=== PATIENT | female | born 1995 | race Hispanic/Latino ===

== ENCOUNTER 2020-02-26 18:18 | Emergency (ER) | payer SELFPAY ==
[2020-02-26] MEDS ORDERED: Sodium Chloride 0.9% 100 ML ONE ×2 (18:59→19:44)
[2020-02-26] MEDS ORDERED: cefTRIAXone\\ROCEPHIN 2 GM VIAL ONE (18:59)
[2020-02-26] MEDS ORDERED: Sodium Chloride 0.9% 2,000 ML ONE (18:59)
[2020-02-26 19:02] LABS: Bilirubin Negative (Negative); Blood, Urine Moderate (Negative); Glucose, Urine (Dipstick) Negative (Negative); Ketone, Urine Negative (Negative); Leukocyte Moderate (Negative); Nitrite Positive (Negative); Protein, Urine (Dipstick) > or equal to 300 mg/dL (Neg-Trace); Urobilinogen 0.2 mg/dL (Less than 2); pH, Urine 5.5 (5.0-9.0)
[2020-02-26 19:11] LABS: #Lymphocytes 0.7 thou/uL (1.20-3.40); #Monocytes 0.2 thou/uL (0.11-0.59); #Neutrophils 14.6 thou/uL (1.40-6.50); %Basophils 0.2 % (0.0-1.0); %Eosinophils 0.1 % (0.0-10.0); %Lymphocytes 4.7 % (21.0-51.0); %Monocytes 1.3 % (0.0-10.0); %Neutrophils 93.7 % (42.0-75.0); Hemoglobin 12.7 g/dL (12.0-16.0); Mean Corpuscular HGB CONC 32.3 g/dL (32.0-36.0); Mean Corpuscular Volume 92.9 fL (78.0-98.0); Mean Platelet Volume 11.6 fL (7.4-10.4); Platelet Count 164 thou/uL (130-400); RBC Distribution Width 11.6 % (11.5-14.5); Red Blood Cell (RBC) Count 4.24 mill/uL (4.20-5.40); White Blood Cell (WBC) Count 15.6 thou/uL (4.8-10.8)
[2020-02-26 19:16] LABS: Clarity Hazy (Clear)
[2020-02-26 19:21] LABS: Pregnancy Test - Urine (BHCG) Negative (Negative); Pregu Control Background? CLEAR/WHITE (CLR/WHITE); Pregu Control Bar Appear? YES (CONTROL BAR)
[2020-02-26 19:24] LABS: Bacteria/HPF 2+ HPF (None Seen); Squamous Epithelial 0-3 HPF (0-3); WBC/HPF Greater Than 50 HPF (0-3)
[2020-02-26 19:24] LABS: ALT (SGPT) 12 U/L (8-55); AST (SGOT) 19 U/L (5-34); Albumin 4.4 g/dL (3.5-5.0); Alkaline Phosphatase 86 U/L (40-110); Anion Gap 17 mmol/L (10-20); BUN (Urea Nitrogen) 25 mg/dL (7.0-18.7); Bilirubin, Total 0.8 mg/dL (0.2-1.2); Calc. Creatinine Clearance 0 mL/min (70-130); Calcium 9.2 mg/dL (7.8-10.44); Carbon Dioxide 18 mmol/L (22-29); Chloride 107 mmol/L (98-107); Estimated GFR-MDRD 29; Globulin 2.9 g/dL (2.4-3.5); Glucose 100 mg/dL (70-105); Potassium 3.6 mmol/L (3.5-5.1); Protein, Total 7.3 g/dL (6.0-8.3); Sodium 138 mmol/L (136-145)
--- NOTE | 2020-02-26 20:04 | CT ---
CT of abdomen and pelvis: 02/26/2020 COMPARISON: None HISTORY: Low back pain, cloudy urine, chills TECHNIQUE: Axial CT imaging at 5 mm intervals from lung bases through pubic symphysis without contras t. Coronal reformatted imaging obtained. FINDINGS: Lack of contrast media limits assessment of the viscera, bowel, vascular structures, and fo r lymphadenopathy. Imaged lung bases are grossly unremarkable. Limited assessment of the liver, gallbladder, and spleen unremarkable. Pancreas and adrenal glands ap pear grossly unremarkable. No nephrolithiasis is seen on either side. There is mild prominence of the right renal collecting sys tem and proximal right ureter. No calcification is seen along the course of either ureter. An IUD is present. Limited assessment of the bowel demonstrates no evidence for obstruction or focal inflammatory change. Partially visualized appendix appears unremarkable. The osseous structures demonstrate no acute findings. IMPRESSION: No evidence for nephrolithiasis. Mild prominence of the renal collecting system and proxi mal ureter on the right which could be on the basis of transient dilation or potentially an inflammatory/infectious process. Correlation with urinalysis is suggested..
[2020-02-26] MEDS ORDERED: Vancomycin HCl 500 MG VIAL ONE (20:36)
== END 2020-02-26 20:45 | disposition short-term general hospital (02) ==
LOC: EDBD 18:18 → NAV ERS 18:18
DX: A41.9 Sepsis, unspecified organism (principal); R65.20 Severe sepsis without septic shock; N17.9 Acute kidney failure, unspecified; N12 Tubulo-interstitial nephritis, not specified as acute or chronic
CPT/HCPCS: 74176; 80053; 81003; 81015; 81025; 83605; 85025; 87040; 87077; 87086; 87149; 87186; 96365; 96367; 96375; J0290; J0696; J3370; J3490; J7050